=== PATIENT | female | born 1980 | race Caucasian/White ===

== ENCOUNTER → 2017-01-04 16:45 | Outpatient (CLI) | payer OTHER | END | disposition home or self-care (01) | LOC: D.MAMMO 09:30 | DX: N63 Unspecified lump in breast (principal) ==

== ENCOUNTER → 2019-12-19 08:46 | Outpatient (CLI) | payer BC | END | disposition home or self-care (01) | LOC: D.NM 08:46 | PROVIDERS: ATTEND Family Medicine | DX: R11.2 Nausea with vomiting, unspecified (principal) ==